=== PATIENT | male | born 1985 | race American Indian/Alaskan Native ===

== ENCOUNTER 2017-02-28 23:49 | Emergency (ER) | payer SELFPAY ==
[2017-03-01 01:44] LABS: Eosinophils % (Auto) 0.6 % (0.0-4.3); Hematocrit 49.4 % (35.5-45.6); Hemoglobin 16.4 gm/dl (11.8-15.2); Mean Corpuscular HGB Conc 33 % (32-34); Mean Corpuscular Hemoglobin 27 pg (28-32); Mean Corpuscular Volume 83 fl (84-94); Platelet Count 169 K/mm3 (140-440); Red Cell Distribution Width 14.2 % (13.2-15.2); White Blood Count 13.3 K/mm3 (4.5-11.0)
[2017-03-01 02:06] LABS: Alanine Aminotransferase 26 units/L (7-56); Albumin 4.5 g/dL (3.9-5); Albumin/Globulin Ratio 1.2 %; Alkaline Phosphatase 57 units/L (35-129); Amylase 90 units/L (27-131); Anion Gap 23 mmol/L; BUN/Creatinine Ratio 16.36; Blood Urea Nitrogen 18 mg/dL (9-20); Calcium 9.6 mg/dL (8.4-10.2); Carbon Dioxide 22 mmol/L (22-30); Chloride 98.6 mmol/L (98-107); Glucose 146 mg/dL (75-100); Lipase 35 units/L (13-60); Potassium 3.7 mmol/L (3.6-5.0); Sodium 140 mmol/L (137-145); Total Protein 8.2 g/dL (6.3-8.2)
[2017-03-01 03:44] LABS: Bilirubin,Urine SM (Negative); Blood,Urine SM (Negative); Ketones,Urine 80 mg/dL (Negative); Leukocyte Esterase,Urine TR (Negative); Mucus,Urine 3+ /HPF; Nitrite,Urine NEG (Negative); Urobilinogen,Urine < 2.0 mg/dL (<2.0)
[2017-03-01] MEDS ORDERED: TORADOL IM ONE (10:33)
[2017-03-01] MEDS ORDERED: ZOFRAN ODT PO ONE (10:33)
--- NOTE | 2017-03-01 10:35 | Emergency Department Report ---
Chief Complaint: Abdominal Pain Stated Complaint: ABD PAIN Time Seen by Provider: 03/01/17 10:32 - HPI History of Present Illness: PT c/o L flank pain that started around 1999 yesterday. PT reports stomach cramps that turned into L flank pain. + n/v - ROS Review of Systems: - dysuria + dark urine - Exam Vital Signs: Vital Signs 03/01/17 01:05 Temperature 97.6 F Pulse Rate 65 Respiratory 22 Rate Blood Pressure 141/90 O2 Sat by Pulse 98 Oximetry Physical Exam: pt is alert, appears in pain + L cva tenderness MSE screening note: Focused history and physical exam performed. Due to findings the following was ordered: meds, ct ED Medical Decision Making - Lab Data Result diagrams: 03/01/17 01:25 03/01/17 01:25 ED Disposition for MSE Condition: Stable Referrals: PRIMARY CARE, [Primary Care Provider] - 3-5 Days
--- NOTE | 2017-03-01 11:14 | Cat Scan Report ---
CT scan of the abdomen and pelvis without IV contrast: History: Flank pain, hematuria. Findings: Normal lung bases. No pleural pericardial effusion. Normal liver spleen pancreas and gallbladder. Normal adrenals. There is 2 mm calculus identified in the distal left ureter approximately 2.5 cm from UV junction. Proximal hydronephrosis. Normal right kidney. Normal appendix. No free intraperitoneal fluid or air. Gaseous colon with stool in colon. No evidence of bowel obstruction. Impression: Small calculus distal left ureter.
[2017-03-01 12:15] VITALS: BP 130/84
--- NOTE | 2017-03-01 15:20 | Emergency Department Report ---
Entered by YOBANI SHEPHERD, acting as scribe for ESTUARDO EISENBERG PA. ED Abdominal Pain HPI - General Chief Complaint: Abdominal Pain Stated Complaint: ABD PAIN Time Seen by Provider: 03/01/17 10:32 Source: patient, family Mode of arrival: Ambulatory Limitations: No Limitations - History of Present Illness Initial Comments: 31 y/o male with no significant PMHx presents to the ED c/o LLQ abdominal pain and left flank pain that began that began last night at 21:00. Rates pain a 10/ 10 in severity, which he describes as sharp in quality. Aggravated with movement and alleviated with nothing. Patient states the pain has been constant since onset. Associated symptoms includes nausea, vomiting, and dark urine, but he denies fever, chills, hematuria, and dysuria. NKDA. DAVIDSON Complaint: abdominal pain, flank pain -: Last night Time: 21:00 Location: LLQ, L flank Radiation: none Migration to: no migration Severity: severe Severity scale (0 -10): 10 Quality: sharp Consistency: constant Improves With: nothing Worsens With: movement Associated Symptoms: denies other symptoms, nausea, vomiting. denies: diarrhea , fever, chills, constipation, dysuria, hematemesis, hematochezia, melena, hematuria, anorexia, syncope - Related Data Previous Rx's Medication Instructions Recorded Last Taken Type HYDROcodone/APAP 5-325 [[place] 1 each PO Q6HR PRN #20 tablet 03/01/17 Unknown Rx 5/325] Ibuprofen [Motrin] 800 mg PO Q8HR PRN #30 tablet 03/01/17 Unknown Rx Sulfamethoxazole/Trimethoprim 1 each PO BID #14 tablet 03/01/17 Unknown Rx [Bactrim DS TAB] Allergies Allergy/AdvReac Type Severity Reaction Status Date / Time No Known Allergies Allergy Unverified 03/01/17 01:05 ED Review of Systems Comment: All other systems reviewed and negative Constitutional: denies: chills, fever Eyes: denies: eye pain, eye discharge, vision change ENT: denies: ear pain, throat pain Respiratory: denies: cough, shortness of breath, wheezing Cardiovascular: denies: chest pain, palpitations Endocrine: no symptoms reported Gastrointestinal: abdominal pain (LLQ), nausea, vomiting. denies: diarrhea, constipation, hematemesis, melena, hematochezia Genitourinary: denies: urgency, dysuria Musculoskeletal: back pain (LT flank pain). denies: joint swelling, arthralgia , myalgia Skin: denies: rash, lesions Neurological: denies: headache, weakness, numbness, paresthesias, confusion, abnormal gait, vertigo Psychiatric: denies: anxiety, depression Hematological/Lymphatic: denies: easy bleeding, easy bruising ED Past Medical Hx - Past Medical History Previous Medical History?: No - Surgical History Past Surgical History?: Yes Additional Surgical History: knee and hip - Family History Family history: no significant - Social History Smoking Status: Never Smoker Substance Use Type: None, Alcohol, Marijuana - Medications Home Medications: Home Medications Medication Instructions Recorded Confirmed Last Taken Type HYDROcodone/APAP 5-325 [[place] 1 each PO Q6HR PRN #20 tablet 03/01/17 Unknown Rx 5/325] Ibuprofen [Motrin] 800 mg PO Q8HR PRN #30 tablet 03/01/17 Unknown Rx Sulfamethoxazole/Trimethoprim 1 each PO BID #14 tablet 03/01/17 Unknown Rx [Bactrim DS TAB] ED Physical Exam - General Limitations: No Limitations General appearance: alert, in no apparent distress - Head Head exam: Present: atraumatic, normocephalic - Eye Eye exam: Present: normal appearance, PERRL, EOMI Pupils: Present: normal accommodation - ENT ENT exam: Present: normal exam, mucous membranes moist, normal external ear exam - Neck Neck exam: Present: normal inspection, full ROM. Absent: tenderness, meningismus, lymphadenopathy, thyromegaly - Respiratory Respiratory exam: Present: normal lung sounds bilaterally. Absent: respiratory distress, wheezes, rales, rhonchi, stridor - Cardiovascular Cardiovascular Exam: Present: regular rate, normal rhythm, normal heart sounds. Absent: systolic murmur, diastolic murmur, rubs, gallop - GI/Abdominal GI/Abdominal exam: Present: soft, tenderness (LLQ), normal bowel sounds. Absent : distended, guarding, rebound, rigid - Extremities Exam Extremities exam: Present: normal inspection, full ROM - Back Exam Back exam: Present: full ROM, tenderness (LT CVA tenderness), CVA tenderness (L) . Absent: normal inspection, CVA tenderness (R), muscle spasm, paraspinal tenderness, vertebral tenderness, rash noted - Neurological Exam Neurological exam: Present: alert, oriented X3, normal gait - Psychiatric Psychiatric exam: Present: normal affect, normal mood - Skin Skin exam: Present: warm, dry, intact, normal color. Absent: rash ED Course Vital Signs 03/01/17 03/01/17 03/01/17 01:05 11:13 11:35 Temperature 97.6 F Pulse Rate 65 59 L Respiratory 22 20 18 Rate Blood Pressure 141/90 149/101 Blood Pressure [Left] O2 Sat by Pulse 98 100 Oximetry 03/01/17 03/01/17 12:13 12:14 Temperature 98.6 F Pulse Rate 57 L Respiratory 18 18 Rate Blood Pressure Blood Pressure 130/84 [Left] O2 Sat by Pulse 96 96 Oximetry ED Medical Decision Making - Lab Data Result diagrams: 03/01/17 01:25 03/01/17 01:25 - Medical Decision Making 31 year old male presents with a renal stone ED course: Patient received a amylase stat, CBC, lipase stat, CMP, UA and a CT of abdomen/pelvis. Patient was given Toradol and Zofran. CT abdomen shows a small clculus distal left ureter Vital signs stable patient is in no acute or respiratory distress. Discussed findings with patient about diagnoses. Discussed treatment in ED with patient Discussed with patient to take prescribed antibiotics and and pain medication Discussed with patient to drink lots of fluids, including cranberry juice to help relieve the pain Discussed with patient to follow up with PCP and crystal attacher as referred, and to return to the ED if symptoms return or worsen. Patient states understanding and will follow instructions. Pt verbally states understanding and will comply to follow up. ED Disposition Clinical Impression: Calculi, ureter Disposition: DC-01 TO HOME OR SELFCARE Is pt being admited?: No Does the pt Need Aspirin: No Condition: Stable Instructions: Kidney Stones (ED), How to Strain Your Urine (ED), Flank Pain (ED ) Additional Instructions: If worsening symptoms please return to ED for evaluation Otherwise follow-up with crystal attacher as referred Prescriptions: HYDROcodone/APAP 5-325 [[place] 5/325] 1 each PO Q6HR PRN #20 tablet PRN Reason: Pain Ibuprofen [Motrin] 800 mg PO Q8HR PRN #30 tablet PRN Reason: Pain Sulfamethoxazole/Trimethoprim [Bactrim DS TAB] 1 each PO BID #14 tablet Referrals: PRIMARY CARE, [Primary Care Provider] - 3-5 Days [facility] [Outside] - 3-5 Days [facility] [Outside] - 3-5 Days DIEGO HERNANDEZ MD, PHD [Referring] - 3-5 Days BOBBY BEGUM MD [Referring] - 3-5 Days JOSE WOOD MD [Staff Physician] - 3-5 Days Forms: Accompanied Note, Work/School Release Form(ED) Time of Disposition: 12:52 This documentation as recorded by the CORA cuello JASMINE,accurately reflects the service I personally performed and the decisions made by ,ESTUARDO EISENBERG, PA.
== END 2017-03-01 13:09 | disposition home or self-care (01) ==
LOC: ED 23:49
DX: N20.1 Calculus of ureter (principal); F12.90 Cannabis use, unspecified, uncomplicated
CPT/HCPCS: 36415; 74176; 80053; 81001; 82150; 83690; 85025; 96372; 99284; J1885; Q0162